=== PATIENT | female | born 1990 | race Caucasian/White ===

== ENCOUNTER → 2018-01-17 13:50 | Outpatient (CLI) | payer MEDICAID, SELFPAY ==
[2018-01-17 18:16] LABS: hCG Titer Quant., Serum 2861 mIU/mL (<9 non-preg)
[2018-01-17 22:58] LABS: Chlamydia Trachomatis by PCR Negative (Negative); Neisserai gonorrhoeae by PCR Negative (Negative); Probe Check PASS; Sample Adequacy Control PASS; Specimen Processing Control PASS
[2018-01-24 09:57] LABS: HPV Reflexed? NOT INDICATED
== END ==
PROVIDERS: Visit Provider Obstetrics & Gynecology
DX: O20.0 Threatened abortion (principal); J84.01 Alveolar proteinosis
CPT/HCPCS: 36415; 84702; 87086; 87088; 87491; 87591; 88175; G0145

== ENCOUNTER → 2018-01-19 12:13 | Outpatient (CLI) | payer MEDICAID, SELFPAY ==
[2018-01-19 12:45] LABS: Absolute Lymphocyte Count 2.25 X10^3/ul (0.83-4.51); Absolute Neutrophil Count 7.2 X10^3/uL (2.0-7.7); Basophil# 0.03 X10^3/uL; Basophil% 0.3 % (0-1); Eosinophil# 0.12 X10^3/uL; Eosinophils% 1.2 % (0-5); Hematocrit 41.3 % (37-47); Hemoglobin 13.9 g/dl (12.0-15.0); Lymphocyte # 2.25 X10^3/ul (4.0); Mean Corp Hgb Conc 33.7 g/gl (32-36); Mean Corpuscular Hgb 31.1 pg (27.0-32.0); Mean Corpuscular Volume 92.4 fL (81-99); Mean Platelet Vol. 10.3 fl (6.2-12.0); Monocyte# 0.66 X10^3/uL; Monocyte% 6.5 % (0-10); Neutrophil # 7.15 X10^3/uL (2.7-7.7); Neutrophil % 69.8 % (47-70); Platelet Count 200 K/mm3 (150-450); RBC Distribution Width CV 12.3 % (11.6-14.6); RBC Distribution Width SD 41.3 fl (35.1-43.9); Red Blood Count 4.47 M/mm3 (4.2-5.4); White Blood Count 10.2 K/mm3 (4.4-11.0)
[2018-01-19 12:50] LABS: POSITIVE COUNT NO; POSITIVE DIFFERENTIAL NO; POSITIVE MORPHOLOGY NO
[2018-01-21 10:35] LABS: HIV - WCH Non-Reactive (Nonreactive); Rubella IgG 116.8 IU/mL
[2018-01-22 07:53] LABS: HEPATITIS B SURFACE AG Negative (Negative)
[2018-01-25 03:16] LABS: Rapid Plasmin Reagin (RPR) NONREACTIVE (NONREACTIVE)
== END ==
PROVIDERS: Visit Provider Obstetrics & Gynecology
DX: Z34.90 Encounter for supervision of normal pregnancy, unspecified, unspecified trimester (principal)
CPT/HCPCS: 36415; 85025; 86592; 86703; 86762; 86850; 86870; 86900; 87340

== ENCOUNTER → 2018-07-12 12:06 | Outpatient (CLI) | payer MEDICAID, SELFPAY ==
[2018-07-12 11:50] VITALS: BMI 26.4
[2018-07-12 14:21] LABS: Glucose Challenge Gest 1H 50g 113 mg/dL (70-140)
[2018-07-12 16:02] LABS: Absolute Lymphocyte Count 1.38 X10^3/ul (0.83-4.51); Absolute Neutrophil Count 8.9 X10^3/uL (2.0-7.7); Basophil# 0.02 X10^3/uL; Basophil% 0.2 % (0-1); Eosinophil# 0.06 X10^3/uL; Eosinophils% 0.6 % (0-5); Hematocrit 38.4 % (37-47); Hemoglobin 12.8 g/dl (12.0-15.0); Lymphocyte # 1.38 X10^3/ul (4.0); Lymphocyte % 12.7 % (19-41); Mean Corp Hgb Conc 33.3 g/gl (32-36); Mean Corpuscular Hgb 32.6 pg (27.0-32.0); Mean Corpuscular Volume 97.7 fL (81-99); Mean Platelet Vol. 11.4 fl (6.2-12.0); Monocyte# 0.49 X10^3/uL; Monocyte% 4.5 % (0-10); Neutrophil # 8.91 X10^3/uL (2.7-7.7); Neutrophil % 81.7 % (47-70); Platelet Count 173 K/mm3 (150-450); RBC Distribution Width CV 12.9 % (11.6-14.6); RBC Distribution Width SD 45.1 fl (35.1-43.9); Red Blood Count 3.93 M/mm3 (4.2-5.4); White Blood Count 10.9 K/mm3 (4.4-11.0)
[2018-07-12 16:12] LABS: POSITIVE COUNT NO; POSITIVE DIFFERENTIAL NO; POSITIVE MORPHOLOGY NO
== END ==
PROVIDERS: Referring Provider Obstetrics & Gynecology; Visit Provider Obstetrics & Gynecology
DX: O09.893 Supervision of other high risk pregnancies, third trimester (principal); Z67.91 Unspecified blood type, Rh negative; Z3A.00 Weeks of gestation of pregnancy not specified
CPT/HCPCS: 36415; 82950; 85025; 86850; 86900

== ENCOUNTER 2018-08-09 12:10 | Outpatient (CLI) | payer MEDICAID, SELFPAY ==
[2018-08-09 11:48] VITALS: BMI 27.9
[2018-08-09 14:23] LABS: Hematocrit 38.8 % (37-47); Hemoglobin 13.1 g/dl (12.0-15.0); Mean Corp Hgb Conc 33.8 g/gl (32-36); Mean Corpuscular Hgb 32.8 pg (27.0-32.0); Mean Corpuscular Volume 97.2 fL (81-99); Mean Platelet Vol. 10.9 fl (6.2-12.0); Platelet Count 150 K/mm3 (150-450); RBC Distribution Width CV 12.8 % (11.6-14.6); Red Blood Count 3.99 M/mm3 (4.2-5.4); Scan Indicated on CBC? Y/N NO; White Blood Count 11.5 K/mm3 (4.4-11.0)
[2018-08-09 14:38] VITALS: BMI 27.9
[2018-08-09 14:59] LABS: ALB/GLOB Ratio 0.8 RATIO (0.9-2.4); AST(SGOT) 15 U/L (15-37); Alanine Aminotransfer ALT/SGPT 15 U/L (13-56); Albumin, Serum 2.7 g/dL (3.2-5.0); Alkaline Phosphatase 93 U/L (45-117); Anion Gap 10 (5-15); BUN 8 mg/dL (7-18); BUN/Creat Ratio 13.7 RATIO (10-20); Calcium,Total 8.5 mg/dL (8.5-10.1); Chloride 109 mmol/L (98-107); Creatinine, Serum 0.58 mg/dL (0.55-1.02); EST Glomerular Filtration Rate 132 mL/min (>60); Est Glom Filt Rate - Afr Amer 160 mL/min (>60); Globulin 3.5 g/dL (2.2-4.2); Glucose 62 mg/dL (74-106); LDH 137 U/L (84-246); Potassium 3.7 mmol/L (3.5-5.1); Protein, Total 6.2 g/dL (6.4-8.2); Sodium Level 141 mmol/L (136-145); Uric Acid 4.2 mg/dL (2.6-6.0)
--- NOTE | 2018-08-14 00:45 | OB.TRI.NOTE ---
- Problem List (1) Threatened labor Status: Acute History of Present Illness Date of Service: 08/09/18 Reason For Visit: R/O LABOR Final JOYA Source: US <20 weeks History of Present Illness: irregualr ctx and mildly elevate dbp in office Allergies doxycycline Adverse Reaction (Severe, Verified 08/09/18 14:39) Vomiting - Pertinent Past Medical History Medical History: Past Medical History (Last Reviewed 08/09/18 @ 11:48 by Kinga Hair) Anemia Surgical History: Past Surgical History (Last Reviewed 08/09/18 @ 11:48 by iKnga Hair) S/P repair of ligament of ankle Onset Date: ~2008 Left Laboratory Studies: Laboratory Tests 08/09/18 08/09/18 08/09/18 Range/Units 14:10 14:10 14:10 WBC 11.5 H (4.4-11.0) K/mm3 RBC 3.99 L (4.2-5.4) M/mm3 Hgb 13.1 (12.0-15.0) g/dl Hct 38.8 (37-47) % MCV 97.2 (81-99) fL MCH 32.8 H (27.0-32.0) pg MCHC 33.8 (32-36) g/gl RDW 12.8 (11.6-14.6) % RDW Differential 45.0 H (35.1-43.9) fl Plt Count 150 (150-450) K/mm3 MPV 10.9 (6.2-12.0) fl Sodium 141 (136-145) mmol/L Potassium 3.7 (3.5-5.1) mmol/L Chloride 109 H (98-107) mmol/L Carbon Dioxide 22.0 (21.0-32.0) mmol/L Anion Gap 10 (5-15) BUN 8 (7-18) mg/dL Creatinine 0.58 (0.55-1.02) mg/dL Estim Creat Clear Calc 137.60 ml/min Est GFR (MDRD) Af Amer 160 (>60) mL/min Est GFR (MDRD) Non-Af 132 (>60) mL/min BUN/Creatinine Ratio 13.7 (10-20) RATIO Glucose 62 L (74-106) mg/dL Uric Acid 4.2 (2.6-6.0) mg/dL Calcium 8.5 (8.5-10.1) mg/dL Total Bilirubin 0.30 (0.20-1.00) mg/dL AST 15 (15-37) U/L ALT 15 (13-56) U/L Alkaline Phosphatase 93 (45-117) U/L Lactate Dehydrogenase 137 (84-246) U/L Total Protein 6.2 L (6.4-8.2) g/dL Albumin 2.7 L (3.2-5.0) g/dL Globulin 3.5 (2.2-4.2) g/dL Albumin/Globulin Ratio 0.8 L (0.9-2.4) RATIO Urine Creatinine 22.00 (NO RANGE EST.) mg/dL NST - FHR Rate Baby A Baseline: 145 Variability:: Moderate Accelerations:: 15 x 15 Decelerations:: None NST Reactive:: Yes FHR Category:: Category I Uterine Activity:: irregular Impression/Plan false labor and elevated blood pressure- repeat WNL and no cervical change dc home labor precautions
== END 2018-08-09 15:25 | disposition home or self-care (01) ==
LOC: WPOUT 12:20 → WP 12:21
PROVIDERS: Referring Provider Obstetrics & Gynecology; Visit Provider Obstetrics & Gynecology
DX: O47.9 False labor, unspecified (principal); Z3A.00 Weeks of gestation of pregnancy not specified; R03.0 Elevated blood-pressure reading, without diagnosis of hypertension
CPT/HCPCS: 59050; 80053; 82570; 83615; 84550; 85027; 99218; G0378

== ENCOUNTER → 2018-08-23 13:20 | Outpatient (CLI) | payer MEDICAID, SELFPAY ==
[2018-08-23 11:40] VITALS: BMI 28.8
[2018-08-23 15:54] LABS: Absolute Lymphocyte Count 1.39 X10^3/ul (0.83-4.51); Absolute Neutrophil Count 7.8 X10^3/uL (2.0-7.7); Basophil# 0.02 X10^3/uL; Basophil% 0.2 % (0-1); Eosinophil# 0.06 X10^3/uL; Eosinophils% 0.6 % (0-5); Hemoglobin 12.8 g/dl (12.0-15.0); Lymphocyte # 1.39 X10^3/ul (4.0); Lymphocyte % 14.4 % (19-41); Mean Corp Hgb Conc 32.8 g/gl (32-36); Mean Corpuscular Hgb 32.4 pg (27.0-32.0); Mean Corpuscular Volume 98.7 fL (81-99); Monocyte# 0.41 X10^3/uL; Monocyte% 4.2 % (0-10); Neutrophil # 7.75 X10^3/uL (2.7-7.7); Neutrophil % 80.4 % (47-70); Platelet Count 152 K/mm3 (150-450); RBC Distribution Width CV 12.7 % (11.6-14.6); RBC Distribution Width SD 45.9 fl (35.1-43.9); Red Blood Count 3.95 M/mm3 (4.2-5.4); White Blood Count 9.7 K/mm3 (4.4-11.0)
[2018-08-23 15:58] LABS: POSITIVE COUNT NO; POSITIVE DIFFERENTIAL NO; POSITIVE MORPHOLOGY NO; Protein, Urine (Random) 25.1 mg/dL (<11.9); Protein:Creat Ratio 220 mg/g CRE (0-200)
[2018-08-23 16:03] LABS: ALB/GLOB Ratio 0.8 RATIO (0.9-2.4); AST(SGOT) 19 U/L (15-37); Alanine Aminotransfer ALT/SGPT 25 U/L (13-56); Albumin, Serum 2.8 g/dL (3.2-5.0); Alkaline Phosphatase 112 U/L (45-117); Anion Gap 9 (5-15); BUN 9 mg/dL (7-18); BUN/Creat Ratio 12.5 RATIO (10-20); Calcium,Total 8.3 mg/dL (8.5-10.1); Chloride 106 mmol/L (98-107); Creatinine, Serum 0.72 mg/dL (0.55-1.02); EST Glomerular Filtration Rate 104 mL/min (>60); Est Glom Filt Rate - Afr Amer 126 mL/min (>60); Globulin 3.5 g/dL (2.2-4.2); Glucose 146 mg/dL (74-106); Potassium 3.5 mmol/L (3.5-5.1); Protein, Total 6.3 g/dL (6.4-8.2); Sodium Level 137 mmol/L (136-145)
== END ==
PROVIDERS: Referring Provider Obstetrics & Gynecology; Visit Provider Obstetrics & Gynecology
DX: O16.3 Unspecified maternal hypertension, third trimester (principal); Z3A.00 Weeks of gestation of pregnancy not specified
CPT/HCPCS: 36415; 80053; 82570; 84156; 85025; 87081

== ENCOUNTER 2018-08-27 08:55 | Outpatient (CLI) | payer MEDICAID, SELFPAY ==
[2018-08-27 08:57] VITALS: BMI 28.8
[2018-08-27 09:33] LABS: Hematocrit 38.8 % (37-47); Hemoglobin 13.1 g/dl (12.0-15.0); Mean Corp Hgb Conc 33.8 g/gl (32-36); Mean Corpuscular Hgb 33.5 pg (27.0-32.0); Mean Corpuscular Volume 99.2 fL (81-99); Mean Platelet Vol. 11.6 fl (6.2-12.0); Platelet Count 101 K/mm3 (150-450); RBC Distribution Width CV 12.7 % (11.6-14.6); RBC Distribution Width SD 44.5 fl (35.1-43.9); Red Blood Count 3.91 M/mm3 (4.2-5.4); White Blood Count 10.3 K/mm3 (4.4-11.0)
[2018-08-27 09:35] VITALS: BMI 28.4
[2018-08-27 09:37] LABS: Scan Indicated on CBC? Y/N NO
[2018-08-27 09:45] LABS: AST(SGOT) 68 U/L (15-37); Alanine Aminotransfer ALT/SGPT 60 U/L (13-56); Creatinine, Serum 0.69 mg/dL (0.55-1.02); EST Glomerular Filtration Rate 108 mL/min (>60); Est Glom Filt Rate - Afr Amer 131 mL/min (>60); Estimated Creatinine Clearance 115.66 ml/min; Uric Acid 4.4 mg/dL (2.6-6.0)
[2018-08-27 09:47] LABS: Protein, Urine (Random) 34.6 mg/dL (<11.9); Protein:Creat Ratio 194 mg/g CRE (0-200)
[2018-08-27 09:50] LABS: Prothrombin Time (Protime)PT. 13.4 SECONDS (11.7-14.9)
[2018-08-27 09:51] LABS: Partial Thromboplast Time 27.5 Seconds (24.1-36.2)
[2018-08-27 10:58] VITALS: BP 133/89; PULSE 63
[2018-08-27] MEDS: Lactated Ringers 1,000 ML 25 ML IV (10:58)
[2018-08-27] MEDS: Betamethasone/Betamethasone 30 MG/5 ML Vial 12 MG IM (11:08)
[2018-08-27] MEDS: Magnesium Sulfate 20 GM/500 ML BAG IV (11:30)
--- NOTE | 2018-08-28 21:19 | OB.TRI.NOTE ---
- Problem List (1) Preeclampsia, severe Status: Acute History of Present Illness Date of Service: 08/27/18 Was patient seen by the physician?: Yes Reason For Visit: RULE OUT PRE-E Date of Service: 08/27/18 Final JOYA: 09/20/18 Final JOYA Source: US <20 weeks Gestational age: 36 Weeks and 5 Days History of Present Illness: 28 yo @ 36w4d presents with elevated bps. she has had a headache and intermittently elevated bps at home. she had negative proteinuria and denies any vb lof admits good fm and denies any regular ctx. upon evaluation her liver enzymes were elevated and platelets were low. she also had epigastric pain and nausea. Allergies doxycycline Adverse Reaction (Severe, Verified 08/27/18 08:40) Vomiting - Pertinent Past Medical History Medical History: Past Medical History (Last Reviewed 08/27/18 @ 08:39 by Kinga Hair) Anemia Surgical History: Past Surgical History (Last Reviewed 08/27/18 @ 08:39 by Kinga Hair) S/P repair of ligament of ankle Onset Date: ~2008 Left Laboratory Studies: Laboratory Tests 08/27/18 08/27/18 08/27/18 Range/Units 09:10 09:10 09:10 WBC (4.4-11.0) K/mm3 RBC (4.2-5.4) M/mm3 Hgb (12.0-15.0) g/dl Hct (37-47) % MCV (81-99) fL MCH (27.0-32.0) pg MCHC (32-36) g/gl RDW (11.6-14.6) % RDW Differential (35.1-43.9) fl Plt Count (150-450) K/mm3 MPV (6.2-12.0) fl PT 13.4 (11.7-14.9) SECONDS INR 1.0 APTT 27.5 (24.1-36.2) Seconds Creatinine 0.69 (0.55-1.02) mg/dL Estim Creat Clear Calc 115.66 ml/min Est GFR (MDRD) Af Amer 131 (>60) mL/min Est GFR (MDRD) Non-Af 108 (>60) mL/min Uric Acid 4.4 (2.6-6.0) mg/dL AST 68 H (15-37) U/L ALT 60 H (13-56) U/L U Random Total Protein 34.6 H (<11.9) mg/dL Urine Creatinine 178.00 (NO RANGE EST.) mg/dL Protein/Creatinin Ratio 194 (0-200) mg/g CRE 08/27/18 Range/Units 09:10 WBC 10.3 (4.4-11.0) K/mm3 RBC 3.91 L (4.2-5.4) M/mm3 Hgb 13.1 (12.0-15.0) g/dl Hct 38.8 (37-47) % MCV 99.2 H (81-99) fL MCH 33.5 H (27.0-32.0) pg MCHC 33.8 (32-36) g/gl RDW 12.7 (11.6-14.6) % RDW Differential 44.5 H (35.1-43.9) fl Plt Count 101 L (150-450) K/mm3 MPV 11.6 (6.2-12.0) fl PT (11.7-14.9) SECONDS INR APTT (24.1-36.2) Seconds Creatinine (0.55-1.02) mg/dL Estim Creat Clear Calc ml/min Est GFR (MDRD) Af Amer (>60) mL/min Est GFR (MDRD) Non-Af (>60) mL/min Uric Acid (2.6-6.0) mg/dL AST (15-37) U/L ALT (13-56) U/L U Random Total Protein (<11.9) mg/dL Urine Creatinine (NO RANGE EST.) mg/dL Protein/Creatinin Ratio (0-200) mg/g CRE Physical Exam Vitals: Vital Signs Pulse BP 63 133/89 H 08/27/18 10:58 08/27/18 10:58
== END 2018-08-27 11:55 | disposition home or self-care (01) ==
LOC: WPOUT 09:02 → WP 09:03
PROVIDERS: Referring Provider Obstetrics & Gynecology; Visit Provider Obstetrics & Gynecology
DX: O14.13 Severe pre-eclampsia, third trimester (principal); Z3A.36 36 weeks gestation of pregnancy; O36.5930 Maternal care for other known or suspected poor fetal growth, third trimester, not applicable or unspecified
CPT/HCPCS: 96360; 36415; 59025; 59050; 82565; 82570; 84156; 84450; 84460; 84550; 85027; 85610; 85730; 96372; 99218; J7120; G0378; J0702

== ENCOUNTER 2018-09-05 17:55 | Outpatient (CLI) | payer MEDICAID, SELFPAY ==
[2018-09-05 17:55] VITALS: BP 170/99; PULSE 72
[2018-09-05 18:00] VITALS: BP 167/99; PULSE 83
[2018-09-05 18:10] VITALS: BP 125/76; PULSE 80
[2018-09-05 18:11] VITALS: BMI 25.8
[2018-09-05 18:40] VITALS: BP 144/88; PULSE 78
[2018-09-05] MEDS: oxyCODONE 5 MG Tablet PO (18:43)
[2018-09-05 18:49] LABS: Anion Gap 12 (5-15); BUN 17 mg/dL (7-18); BUN/Creat Ratio 23.9 RATIO (10-20); Calcium,Total 8.1 mg/dL (8.5-10.1); Chloride 109 mmol/L (98-107); Creatinine, Serum 0.71 mg/dL (0.55-1.02); EST Glomerular Filtration Rate 105 mL/min (>60); Est Glom Filt Rate - Afr Amer 128 mL/min (>60); Estimated Creatinine Clearance 112.41 ml/min; Glucose 134 mg/dL (74-106); Potassium 3.8 mmol/L (3.5-5.1); Sodium Level 145 mmol/L (136-145)
[2018-09-05 18:52] LABS: Absolute Lymphocyte Count 1.37 X10^3/ul (0.83-4.51); Absolute Neutrophil Count 5.9 X10^3/uL (2.0-7.7); Basophil# 0.03 X10^3/uL; Basophil% 0.4 % (0-1); Eosinophil# 0.18 X10^3/uL; Eosinophils% 2.2 % (0-5); Hematocrit 34.6 % (37-47); Hemoglobin 11.2 g/dl (12.0-15.0); Lymphocyte # 1.37 X10^3/ul (4.0); Lymphocyte % 16.6 % (19-41); Mean Corp Hgb Conc 32.4 g/gl (32-36); Mean Corpuscular Hgb 33.2 pg (27.0-32.0); Mean Corpuscular Volume 102.7 fL (81-99); Mean Platelet Vol. 10.3 fl (6.2-12.0); Monocyte# 0.67 X10^3/uL; Monocyte% 8.1 % (0-10); Neutrophil # 5.92 X10^3/uL (2.7-7.7); POSITIVE COUNT NO; POSITIVE DIFFERENTIAL NO; POSITIVE MORPHOLOGY NO; Platelet Count 226 K/mm3 (150-450); RBC Distribution Width CV 12.9 % (11.6-14.6); RBC Distribution Width SD 47.2 fl (35.1-43.9); Red Blood Count 3.37 M/mm3 (4.2-5.4); White Blood Count 8.2 K/mm3 (4.4-11.0)
--- NOTE | 2018-09-07 07:02 | OB.TRI.PN ---
Progress Notes Date of Service: 09/05/18 Progress Note: patient had headache and initially elevated bp- seen while she was here visiting baby and bloodwork checked, stable. preeclampsia precautions reveiwed. dc home Laboratory Studies: Laboratory Tests 09/05/18 09/05/18 Range/Units 18:05 18:05 WBC 8.2 (4.4-11.0) K/mm3 RBC 3.37 L (4.2-5.4) M/mm3 Hgb 11.2 L (12.0-15.0) g/dl Hct 34.6 L (37-47) % MCV 102.7 H (81-99) fL MCH 33.2 H (27.0-32.0) pg MCHC 32.4 (32-36) g/gl RDW 12.9 (11.6-14.6) % RDW Differential 47.2 H (35.1-43.9) fl Plt Count 226 (150-450) K/mm3 MPV 10.3 (6.2-12.0) fl Immature Gran % (Auto) 0.700 (0.0-0.9) % Neut % (Auto) 72.0 H (47-70) % Lymph % (Auto) 16.6 L (19-41) % [place] % (Auto) 8.1 (0-10) % Eos % (Auto) 2.2 (0-5) % Baso % (Auto) 0.4 (0-1) % Absolute Neuts (auto) 5.9 (2.0-7.7) X10^3/uL Absolute Lymphs (auto) 1.37 (0.83-4.51) X10^3/ul Total Counted Not Reportable Sodium 145 (136-145) mmol/L Potassium 3.8 (3.5-5.1) mmol/L Chloride 109 H (98-107) mmol/L Carbon Dioxide 24.0 (21.0-32.0) mmol/L Anion Gap 12 (5-15) BUN 17 (7-18) mg/dL Creatinine 0.71 (0.55-1.02) mg/dL Estim Creat Clear Calc 112.41 ml/min Est GFR (MDRD) Af Amer 128 (>60) mL/min Est GFR (MDRD) Non-Af 105 (>60) mL/min BUN/Creatinine Ratio 23.9 H (10-20) RATIO Glucose 134 H (74-106) mg/dL Calcium 8.1 L (8.5-10.1) mg/dL
== END 2018-09-05 18:55 | disposition home or self-care (01) ==
LOC: WPOUT 18:08 → WP 18:10
PROVIDERS: Visit Provider Obstetrics & Gynecology
DX: O26.899 Other specified pregnancy related conditions, unspecified trimester (principal); R51 Headache; R03.0 Elevated blood-pressure reading, without diagnosis of hypertension; Z3A.00 Weeks of gestation of pregnancy not specified
CPT/HCPCS: 36415; 80048; 85025; 99218; G0378

== ENCOUNTER → 2019-09-18 16:34 | Outpatient (CLI) | payer OTHER, SELFPAY ==
[2018-11-15 10:31] VITALS: BMI 25.8
== END ==
PROVIDERS: PCP Family Medicine; Visit Provider Family Medicine
DX: B34.9 Viral infection, unspecified (principal)
CPT/HCPCS: 87633

== ENCOUNTER → 2020-07-21 12:47 | Outpatient (CLI) | payer OTHER, SELFPAY ==
[2018-11-15 10:31] VITALS: BMI 25.8
== END ==
PROVIDERS: PCP Family Medicine; Visit Provider Family Medicine
DX: R05 Cough (principal); R09.81 Nasal congestion; Z03.818 Encounter for observation for suspected exposure to other biological agents ruled out
CPT/HCPCS: 87635; U0005; U0003

== ENCOUNTER → 2021-07-03 06:10 | Outpatient (CLI) | payer OTHER, SELFPAY | PROVIDERS: PCP Family Medicine; Referring Provider Family Medicine; Visit Provider Family Medicine | DX: Z20.828 Contact with and (suspected) exposure to other viral communicable diseases (principal) | CPT/HCPCS: 87635; U0005; U0003 ==

== ENCOUNTER 2021-08-15 10:05 | Outpatient (CLI) | payer BC, SELFPAY | END 2021-08-15 23:59 | disposition home or self-care (01) | LOC: LABSPEC 10:07 | PROVIDERS: PCP Family Medicine; Visit Provider Family Medicine | DX: Z20.828 Contact with and (suspected) exposure to other viral communicable diseases (principal) | CPT/HCPCS: 87635; U0003; U0005 ==

== ENCOUNTER → 2023-09-11 | Outpatient (CLI) | payer BC, SELFPAY ==
[2023-09-14 14:09] LABS: HPV APTIMA, High Risk Negative (Negative)
== END | disposition home or self-care (01) ==
LOC: LABSPEC 15:43
PROVIDERS: PCP Family Medicine; Referring Provider Nurse Practitioner Women's Health; Visit Provider Nurse Practitioner Women's Health
DX: Z12.4 Encounter for screening for malignant neoplasm of cervix (principal)
CPT/HCPCS: 87624; 88175; G0145

== ENCOUNTER → 2023-11-06 | Outpatient (CLI) | payer BC, SELFPAY ==
[2023-11-09 06:09] LABS: Chlamydia By Nucleic Acid AMP Negative (Negative); Gonococcus By Nucleic Acid AMP Negative (Negative)
== END | disposition home or self-care (01) ==
LOC: LABSPEC 16:52
PROVIDERS: PCP Family Medicine; Referring Provider Nurse Practitioner Women's Health; Visit Provider Nurse Practitioner Women's Health
DX: Z11.3 Encounter for screening for infections with a predominantly sexual mode of transmission (principal)
CPT/HCPCS: 87491; 87591